=== PATIENT | female | born 1965 | race American Indian/Alaskan Native ===

== ENCOUNTER 2017-01-29 10:10 | Outpatient (CLI) | payer OTHER ==
--- NOTE | 2017-01-29 11:24 | Mammography Report ---
Bilateral digital screening mammogram with CAD. Comparison studies dated May 29, 2014. Findings: The breast parenchyma is heterogeneously dense bilaterally. There are a few microcalcifications in the upper-outer quadrant of the left breast; these have slightly increased in number since the previous study. No architectural distortion is seen. Impression: Left microcalcifications which need additional evaluation. BI-RADS code: 0. Recommendation: Spot compression magnification images.
== END 2017-01-29 10:11 | disposition home or self-care (01) ==
LOC: MAMMO 10:10
PROVIDERS: ATTEND Nurse Practitioner Gerontology
DX: Z12.31 Encounter for screening mammogram for malignant neoplasm of breast (principal)
CPT/HCPCS: 77067; G0202